=== PATIENT | female | born 1960 | race Two or more races ===

== ENCOUNTER 2019-09-29 10:36 | Outpatient (CLI) | payer OTHER | END 2019-09-29 10:42 | disposition home or self-care (01) | LOC: SONOGRAMA 10:36 | DX: E04.1 Nontoxic single thyroid nodule (principal) ==

== ENCOUNTER 2024-05-19 12:14 | Outpatient (CLI) | payer OTHER | END 2024-05-19 12:17 | disposition home or self-care (01) | LOC: SONOGRAMA 12:14 | PROVIDERS: ATTEND Pathology Anatomic Pathology | DX: D34 Benign neoplasm of thyroid gland (principal); E07.89 Other specified disorders of thyroid; E04.1 Nontoxic single thyroid nodule ==